=== PATIENT | male | born 1985 | race Caucasian/White ===

== ENCOUNTER 2020-07-15 12:51 | Emergency (ER) | payer BC ==
[~2020-07-15] VITALS: Ht 188 cm; Wt 113.2 kg
--- NOTE | 2020-07-15 13:00 | PHYS DOC ---
Past History Smoking: Non-smoker Alcohol Use: Sober Drug Use: None Adult General Chief Complaint Chief Complaint: ABDOMINAL PAIN HPI HPI Patient is a 34-year-old male presenting for right upper quadrant pain. This is an acute on chronic phenomena. Reports he has had this for a while but has been increasing in frequency. Eating makes worse, nothing known makes better. Pain is sharp and focal to the right upper quadrant area with minimal radiation. Timing of symptoms waxes and wanes but is most prominent around mealtimes. Patient has history of seasonal allergies and distant history of alcohol depen dence, currently just takes Zyrtec and Antabuse daily. He has never had formal evaluation of his right upper quadrant, has no PCP Review of Systems Review of Systems Fourteen body systems of review of systems have been reviewed. See HPI for pertinent positives and negative responses, other kelsey all other systems are negative, non-pertinent or non-contributory Physical Exam Physical Exam Constitutional: Well developed, well nourished, no acute distress, non-toxic appearance. HENT: Normocephalic, atraumatic, bilateral external ears normal, oropharynx moist, no oral exudates, nose normal. Eyes: PERRLA, EOMI, conjunctiva normal, no discharge. Neck: Normal range of motion, no tenderness, supple, no stridor. Cardiovascular: Heart rate regular, sinus rhythm, no murmurs rubs or gallops Lungs & Thorax: Bilateral breath sounds clear to auscultation Abdomen: Bowel sounds normal, soft, right upper quadrant pain, positive Delvalle sign, guarding present without rebound, no masses, no pulsatile masses. Nonsurgical abdomen, no peritoneal signs Skin: Warm, dry, no erythema, no rash. Back: No tenderness, no CVA tenderness. Extremities: No tenderness, no cyanosis, no clubbing, ROM intact, no edema. Neurologic: Alert and oriented X 3, grossly normal motor & sensory function, no focal deficits noted. Psychologic: Affect normal, judgement normal, mood normal. Current Patient Data Vital Signs Vital Signs Date Time Temp Pulse Resp B/P (MAP) Pulse Ox O2 Delivery O2 Flow Rate FiO2 07/15/20 13:00 97.9 65 18 143/112 (122) 99 Room Air Vital Signs Date Time Temp Pulse Resp B/P (MAP) Pulse Ox O2 Delivery O2 Flow Rate FiO2 07/15/20 13:00 97.9 65 18 143/112 (122) 99 Room Air Lab Results Laboratory Tests Test 07/15/20 13:15 White Blood Count 6.2 x10^3/uL Red Blood Count 5.38 x10^6/uL Hemoglobin 14.6 g/dL Hematocrit 45.1 % Mean Corpuscular Volume 84 fL Mean Corpuscular Hemoglobin 27 pg Mean Corpuscular Hemoglobin Concent 33 g/dL Red Cell Distribution Width 12.8 % Platelet Count 261 x10^3/uL Neutrophils (%) (Auto) 57 % Lymphocytes (%) (Auto) 30 % Monocytes (%) (Auto) 11 % Eosinophils (%) (Auto) 2 % Basophils (%) (Auto) 1 % Neutrophils # (Auto) 3.5 x10^3uL Lymphocytes # (Auto) 1.9 x10^3/uL Monocytes # (Auto) 0.7 x10^3/uL Eosinophils # (Auto) 0.1 x10^3/uL Basophils # (Auto) 0.1 x10^3/uL Sodium Level 143 mmol/L Potassium Level 4.0 mmol/L Chloride Level 106 mmol/L Carbon Dioxide Level 28 mmol/L Anion Gap 9 Blood Urea Nitrogen 17 mg/dL Creatinine 1.0 mg/dL Estimated GFR (Cockcroft-Gault) 86.6 BUN/Creatinine Ratio 17 Glucose Level 97 mg/dL Calcium Level 9.8 mg/dL Total Bilirubin 0.3 mg/dL Aspartate Amino Transf (AST/SGOT) 24 U/L Alanine Aminotransferase (ALT/SGPT) 65 U/L Alkaline Phosphatase 87 U/L Total Protein 8.0 g/dL Albumin 4.2 g/dL Albumin/Globulin Ratio 1.1 Current Medications Medications (Trade) Dose Ordered Sig/Anthony Route PRN Reason Start Time Stop Time Status Last Admin Dose Admin Iohexol (Omnipaque 300 Mg/ml) 75 ml 1X ONCE IV 07/15/20 13:15 07/15/20 13:17 DC 07/15/20 13:24 EKG EKG [] Radiology/Procedures Radiology/Procedures CT SCAN OF THE ABDOMEN AND PELVIS WITH IV CONTRAST. History: Reason: ruq pain Comparison:None. Procedure: Contiguous axial images of the abdomen and pelvis were performed after the administration of 75 cc of Omni 300 IV contrast. Oral contrast: No. Findings: The gallbladder is normal. The appendix is normal. Liver: Unremarkable Spleen: Unremarkable Pancreas: Unremarkable Adrenal Glands: Unremarkable Kidneys: Unremarkable There is no mass or lymphadenopathy. There is no free air. There is no free fluid. The urinary bladder appears normal. Impression: No acute findings. Heart Score C/O Chest Pain: No HEART Score for Chest Pain: HEART Score for Chest Pain Response (Comments) Value History Slighlty/Non-Suspicious 0 Age < 45 0 Risk Factors No Risk Factors 0 Total 0 Risk Factors: Risk Factors: DM, Current or recent (<one month) smoker, HTN, HLP, family history of CAD, obesity. Risk Scores: Risk Factors: DM, Current or recent (<one month) smoker, HTN, HLP, family history of CAD, obesity. Course & Med Decision Making Course & Med Decision Making ABCs unremarkable. Afebrile and hemodynamically stable. HPI and physical exam concerning for right upper quadrant abdominal pathology but no significant findings on CT imaging Nonemergent/no surgical findings today. Disclose there is no indication for further diagnostic work-up in ER setting. Advised patient to seek PCP advice for further outpatient follow-up regarding his complaints Given history of alcohol dependence, other diagnoses such as liver pathology is not excluded and so, I stressed the importance of outpatient follow-up to establish care and work-up such issues Strict return precautions were discussed with good understanding by patient, all questions and concerns addressed prior to ER departure Yoli Disclaimer Yoli Disclaimer This electronic medical record was generated, in whole or in part, using a voice recognition dictation system. Departure Departure: Impression: Primary Impression: RUQ abdominal pain Disposition: 01 DC HOME SELF CARE/HOMELESS Condition: STABLE Referrals: PCP,NO (PCP) Patient Instructions: Abdominal Pain (Nonspecific) Additional Instructions: You have been evaluated in the Emergency Department today for abdominal pain. Your evaluation was not suggestive of any emergent condition requiring medical intervention at this time. However, some abdominal problems make take more time to appear. Therefore, it is important for you to watch for any new symptoms or worsening of your current condition. As discussed prior to departure, please see his attached list of local primary care providers to call and schedule outpatient follow-up to review your visit today. You would benefit from ultrasound and potential HIDA scan. Specialist consultation might be advised Return to the Emergency Department if you experience worsening pain, persistent fevers greater than 100.4, recurrent vomiting, blood in vomit, blood in stool, dark tarry stool, chest pain, difficulty breathing, or any other concerning symptoms. AARON FOOTE DO Jul 15, 2020 13:00
[2020-07-15] MEDS ORDERED: IOHEXOL 300 MG/ML 75 ML VIAL. IV ONE (13:15)
[2020-07-15 13:42] LABS: BASO # 0.1 x10^3/uL (0.0-0.2); BASO % 1 % (0-3); EOS # 0.1 x10^3/uL (0.0-0.7); EOS % 2 % (0-3); HEMATOCRIT 45.1 % (39.0-53.0); HEMOGLOBIN 14.6 g/dL (13.0-17.5); LYMPH # 1.9 x10^3/uL (1.0-4.8); LYMPH % 30 % (24-48); MEAN CORPUSCULAR HEMOGLOBIN 27 pg (25-35); MEAN CORPUSCULAR HGB CONC 33 g/dL (31-37); MEAN CORPUSCULAR VOLUME 84 fL (79-100); MONO # 0.7 x10^3/uL (0.0-1.1); MONO % 11 % (0-9); NEUT # 3.5 x10^3uL (1.8-7.7); NEUT % 57 % (31-73); PLATELET COUNT 261 x10^3/uL (140-400); RED BLOOD COUNT 5.38 x10^6/uL (4.30-5.70); RED CELL DISTRIBUTION WIDTH 12.8 % (11.5-14.5); WHITE BLOOD COUNT 6.2 x10^3/uL (4.0-11.0)
[2020-07-15 13:49] LABS: CALCIUM 9.8 mg/dL (8.5-10.1); GFR 86.6
[2020-07-15 14:20] LABS: ALBUMIN 4.2 g/dL (3.4-5.0); ALBUMIN/GLOBULIN RATIO 1.1 (1.0-1.7); TOTAL BILIRUBIN 0.3 mg/dL (0.2-1.0)
--- NOTE | 2020-07-15 14:25 | RAD ---
CT SCAN OF THE ABDOMEN AND PELVIS WITH IV CONTRAST. History: Reason: ruq pain Comparison:None. Procedure: Contiguous axial images of the abdomen and pelvis were performed after the administration of 75 cc o f Omni 300 IV contrast. Oral contrast: No. Findings: The gallbladder is normal. The appendix is normal. Liver: Unremarkable Spleen: Unremarkable Pancreas: Unremarkable Adrenal Glands: Unremarkable Kidneys: Unremarkable There is no mass or lymphadenopathy. There is no free air. There is no free fluid. The urinary bladder appears normal. Impression: No acute findings. PQRS Compliance Statement: One or more of the following individualized dose reduction techniques were utilized for this examinat ion: 1. Automated exposure control 2. Adjustment of the mA and/or kV according to patient size 3. Use of iterative reconstruction technique Electronically signed by: Brody Burch III, MD (07/15/2020 2:22 PM) [facility]
[2020-07-15 14:43] VITALS: BP 126/69
== END 2020-07-15 14:52 | disposition home or self-care (01) ==
LOC: ER 12:51
DX: R10.11 Right upper quadrant pain (principal)
CPT/HCPCS: 36415; 74177; 80053; 85025; 99285; Q9967

== ENCOUNTER → 2021-04-17 | Outpatient (CLI) | payer OTHER | LOC: LAB 09:48 | PROVIDERS: ATTEND Internal Medicine Cardiovascular Disease | DX: U07.1 COVID-19 (principal); R68.89 Other general symptoms and signs; R09.81 Nasal congestion; R53.81 Other malaise; M79.10 Myalgia, unspecified site | CPT/HCPCS: U0003 ==

== ENCOUNTER 2021-04-25 12:52 | Emergency (ER) | payer OTHER ==
[~2021-04-25] VITALS: Ht 188 cm; Wt 93.8 kg
--- NOTE | 2021-04-25 13:11 | RAD ---
XR CHEST 1V History: Covid positive. Shortness of breath. Comparison: None. Technique: AP radiograph of the chest. Findings: The lungs are adequately and symmetrically inflated. No airspace consolidation, pleural effusion or p neumothorax. The cardiomediastinal silhouette and pulmonary vasculature are within normal limits. No acute osseous abnormality. Soft tissues are unremarkable. Impression: 1. No acute cardiopulmonary process. Electronically signed by: Jack Ospina MD (04/25/2021 1:09 PM) [id number]
[2021-04-25] MEDS ORDERED: ALBU2.5V8 IH (13:36)
[2021-04-25 13:37] VITALS: BP 139/93
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
== END 2021-04-25 13:47 | disposition home or self-care (01) ==
LOC: ER 12:52
DX: U07.1 COVID-19 (principal); B34.9 Viral infection, unspecified; Z88.1 Allergy status to other antibiotic agents
CPT/HCPCS: 71045; 99283